=== PATIENT | male | born 1990 | race Hispanic/Latino ===

== ENCOUNTER 2019-09-08 18:58 | Emergency (ER) | payer BC | END 2019-09-08 20:27 | disposition home or self-care (01) | LOC: EDH 18:58 | DX: H53.8 Other visual disturbances (principal); I48.91 Unspecified atrial fibrillation | CPT/HCPCS: 70450 ==

== ENCOUNTER 2022-09-28 23:18 | Emergency (ER) | payer BC ==
[~2022-09-28] VITALS: Ht 170.2 cm; Wt 110.2 kg
[2022-09-29 00:21] LABS: APPEARANCE,URINE CLEAR (CLEAR); BILIRUBIN,URINE NEGATIVE (NEGATIVE); COLOR,URINE COLORLESS (YELLOW); GLUCOSE, URINE (UA) NEGATIVE (NEGATIVE); KETONES,URINE NEGATIVE (NEGATIVE); LEUKOCYTE ESTERASE ,URINE NEGATIVE Leu/uL (NEGATIVE); NITRATE,URINE NEGATIVE (NEGATIVE); OCCULT BLOOD,URINE NEGATIVE (NEGATIVE); PROTEIN,URINE NEGATIVE (NEGATIVE); UROBILINOGEN,URINE 0.2 mg/dL (0.2-1.0)
[2022-09-29 00:31] LABS: BASOPHILS % (AUTO) 0.9 % (0.0-5.0); EOSINOPHILS % (AUTO) 1.2 % (0.0-8.0); LYMPHOCYTES % (AUTO) 28.8 % (21.0-51.0); MEAN CORPUSCULAR HGB CONC 34.3 g/dL (32.0-36.0); MEAN CORPUSCULAR VOLUME 90.5 fL (79-99); NEUTROPHILS % (AUTO) 59.7 % (40.0-77.0); PLATELET COUNT (AUTO) 329 K/uL (130-400); RED BLOOD CELL COUNT(AUTO) 4.64 MIL/uL (4.50-6.20); RED CELL DISTRIBUTION WIDTH 13.2 % (11.0-15.5); WHITE BLOOD COUNT (AUTO) 9.7 K/uL (4.8-10.8)
[2022-09-29 00:47] LABS: POTASSIUM 3.5 mmol/L (3.5-5.1)
[2022-09-29 00:52] LABS: ALBUMIN 4.3 g/dL (3.5-5.0); TOTAL PROTEIN, SERUM 8.1 g/dL (6.0-8.3)
[2022-09-29 01:00] VITALS: BP 108/63
== END 2022-09-29 01:54 | disposition home or self-care (01) ==
LOC: EDH 23:18
DX: B34.9 Viral infection, unspecified (principal); Z20.822 Contact with and (suspected) exposure to COVID-19; I10 Essential (primary) hypertension
CPT/HCPCS: 99283; 71045; 87635; 80053; 85025; 87880; 87804 ×2; 81003; 36415; C9803

== ENCOUNTER → 2023-01-16 | Outpatient (CLI) | payer BC | END | disposition home or self-care (01) | LOC: RAH 07:30 | PROVIDERS: ATTEND Internal Medicine Gastroenterology | DX: R10.13 Epigastric pain (principal); R14.0 Abdominal distension (gaseous) | CPT/HCPCS: 78264; A9541 ==

== ENCOUNTER 2023-04-03 20:16 | Emergency (ER) | payer BC ==
[~2023-04-03] VITALS: Ht 170.2 cm; Wt 99.8 kg
[2023-04-03 20:18] VITALS: BP 155/77
[2023-04-03] MEDS ORDERED: HYDR-3421 PO (22:23)
== END 2023-04-03 22:36 | disposition home or self-care (01) ==
LOC: EDH 20:16
DX: F41.9 Anxiety disorder, unspecified (principal); E78.00 Pure hypercholesterolemia, unspecified; I10 Essential (primary) hypertension